=== PATIENT | male | born 1980 | race Hispanic/Latino ===

== ENCOUNTER 2021-10-29 13:18 | Outpatient (CLI) | payer OTHER ==
[2021-10-29 14:51] LABS: #Basophils 0.1 10x3/uL (0.0-0.2); #Eosinphils 0.1 10x3/uL (0.0-0.5); #Monocytes 1.1 10x3/uL (0.0-1.1); #Neutrophils 4.6 10x3/uL (1.5-8.4); %Basophils 1.4 % (0.0-2.0); %Lymphocytes 27.5 % (18.0-47.0); %Monocytes 13.4 % (0.0-10.0); %Neutrophils 56.3 % (40.0-75.0); Hemoglobin 7.8 g/dL (13.5-17.5); Mean Corpuscular HGB CONC 28.6 g/dL (32.0-36.0); Mean Corpuscular Hemoglobin 20.5 pg (27.0-33.0); Mean Corpuscular Volume 71.8 fl (81.2-95.1); Mean Platelet Volume 10.1 fl (7.4-10.4); Platelet Count 223 10x3/uL (150-450); RBC Distribution Width 18.1 % (11.5-14.5); White Blood Cell (WBC) Count 8.1 10x3/uL (3.5-10.5)
[2021-10-29 15:23] LABS: Anisocytosis SLIGHT = 6-15 cells (100X) (0-5/hpf); Hypochromia MODERATE=16-30 cells (100X) (0-5/hpf); Microcytosis SLIGHT = 6-15 cells (100X) (0-5/hpf); Platelet Morphology Comment Appears Adequate
[2021-10-29 23:30] LABS: SARS-CoV-2 PCR by NAA Not Detected (NotDetected)
== END 2021-10-29 13:19 | disposition home or self-care (01) ==
LOC: LABBT 13:18
PROVIDERS: ATTEND Surgery
DX: Z01.812 Encounter for preprocedural laboratory examination (principal); Z20.822 Contact with and (suspected) exposure to COVID-19
CPT/HCPCS: 85025; U0003; U0005

== ENCOUNTER 2021-11-01 07:38 | Day surgery (SDC) | payer OTHER ==
[2021-10-31 10:55] VITALS: BMI 28.8
[2021-11-01] MEDS ORDERED: ceFAZolin 2 GM/DEX 5% 100 ML BAG ONE (08:09)
[2021-11-01] MEDS ORDERED: Pantoprazole 40 MG VIAL IVP SCH (09:30)
[2021-11-01] MEDS ORDERED: EPINEPHrine 1 MG/ML AMP ONE (09:37)
[2021-11-01] MEDS ORDERED: Bupivacaine PF 0.5% 30 ML VIAL ONE (09:37)
[2021-11-01] MEDS ORDERED: Glycopyrrolate 0.2 MG/ML 5 ML SYRINGE ONE (09:49)
[2021-11-01] MEDS ORDERED: Rocuronium Bromide 10 MG/ML (10ML VIAL) ONE (09:49)
[2021-11-01] MEDS ORDERED: Ondansetron PF 4 MG/2 ML Vial ONE (09:49)
[2021-11-01] MEDS ORDERED: Dexamethasone 20 MG/5 ML VIAL ONE (09:49)
[2021-11-01] MEDS ORDERED: PROPOFOL 200 MG/20 ML VIAL ONE (09:49)
[2021-11-01] MEDS ORDERED: Ketorolac Tromethamine 30 MG/ML VIAL ONE (09:49)
[2021-11-01] MEDS ORDERED: Fentanyl 100 MCG/2 ML VIAL ONE ×2 (09:50→11:18)
[2021-11-01] MEDS ORDERED: HYDROcodone/Acetaminophen 5/325 mg Tablet ONE (12:38)
== END 2021-11-01 13:37 | disposition home or self-care (01) ==
LOC: SDC 07:38
PROVIDERS: ATTEND Surgery
PROC: 0WUF0JZ Supplement Abdominal Wall with Synthetic Substitute, Open Approach (ICD-10-PCS; principal; 2021-11-01)
DX: K42.9 Umbilical hernia without obstruction or gangrene (principal)
CPT/HCPCS: 93005; 93010; C1781; J0171; J1100; J1885; J2405; J2704; J3010; S0020